=== PATIENT | male | born 1980 | race Hispanic/Latino ===

== ENCOUNTER 2024-06-30 21:36 | Emergency (ER) | payer OTHER ==
[~2024-06-30] VITALS: Ht 165.1 cm; Wt 77.1 kg
[~2024-06-30 21:36] MED LIST: NITROFURANTOIN100 MG PO; PAXLOVID 300-11 EACH PO
[2024-06-30 22:22] VITALS: PULSE 87; RESP 19; TEMP 99.9; O2SAT 97
[2024-06-30] MEDS ORDERED: ONDANSETRON ODT4 MG PO (22:33)
[2024-06-30] MEDS ORDERED: BENZONATATE100 MG PO (22:33)
== END 2024-06-30 23:10 | disposition home or self-care (01) ==
LOC: FSED 22:13
DX: R50.9 Fever, unspecified (principal); J10.1 Influenza due to other identified influenza virus with other respiratory manifestations; R05.9 Cough, unspecified; Z11.52 Encounter for screening for COVID-19
CPT/HCPCS: 0223U; 87400; 99283